=== PATIENT | male | born 1955 | race Caucasian/White ===

== ENCOUNTER 2018-08-08 16:32 | Emergency (ER) | payer OTHER ==
[~2018-08-08] VITALS: Ht 182.9 cm; Wt 82.6 kg
[2018-08-08 16:50] VITALS: Ht 182.9 cm; Wt 82.6 kg
[2018-08-08 18:23] VITALS: BP 117/76
== END 2018-08-08 18:23 | disposition home or self-care (01) ==
LOC: ED 16:32
DX: R07.89 Other chest pain (principal); R07.81 Pleurodynia; I10 Essential (primary) hypertension; Z98.890 Other specified postprocedural states; Z90.89 Acquired absence of other organs; W22.01XA Walked into wall, initial encounter; Y93.89 Activity, other specified; Y92.89 Other specified places as the place of occurrence of the external cause; Y99.8 Other external cause status